=== PATIENT | male | born 1995 | race Hispanic/Latino ===

== ENCOUNTER 2019-09-26 15:29 | Outpatient (CLI) | payer BC ==
--- NOTE | 2019-09-26 15:47 | RAD ---
CHEST ONE VIEW: 09/26/19 at 2:43 p.m. HISTORY: Reaction to TB skin test without active TB. FINDINGS: The cardiomediastinum is normal. The lungs are expanded and clear. The bony thorax is normal. IMPRESSION: Normal exam. No radiographic evidence of active pulmonary tuberculosis. POS: [facility]
== END 2019-09-26 15:30 | disposition home or self-care (01) ==
LOC: BICRAD 15:29
PROVIDERS: ATTEND Physician Assistant
DX: R76.11 Nonspecific reaction to tuberculin skin test without active tuberculosis (principal)
CPT/HCPCS: 71045